=== PATIENT | male | born 1960 | race Caucasian/White ===

== ENCOUNTER 2016-08-22 19:57 | Emergency (ER) | payer OTHER ==
[~2016-08-22] VITALS: Ht 167.6 cm; Wt 77.0 kg
[2016-08-22 20:01] VITALS: Ht 167.6 cm; Wt 77.0 kg
[2016-08-22] MEDS ORDERED: HC1C30 TOP (20:22)
[2016-08-22] MEDS ORDERED: ELIM TOP (20:22)
--- NOTE | 2016-08-22 20:26 | ERD ---
ER Documentation Chief Complaint Date/Time DATE: 08/22/16 TIME: 20:24 Chief Complaint rashes on left arm HPI 55-year-old who presents the emergency room with greater than 2 months of rashes to bilateral arms that appears to be worsening left arm greater than right arm. Slightly worse with sun exposure today. He denies any fevers or chills. He thinks that he may have salt bug when he was scratching his left arm. Patient has not seen a project management consultant and not tried any creams. ROS All systems reviewed and are negative except as per history of present illness. Medications Home Meds Active Scripts Hydrocortisone* Topical (Hydrocortisone* Topical) 1%-28.35 Gm Cream..g., 1 APPLIC TOP Q6 Y for ITCHING, #1 TUB Prov:SUSAN BRISENO MD 08/22/16 Permethrin* (Elimite*) 5% Cr, 1 APPLIC TOP ONCE, #1 TUB Prov:SUSAN BRISENO MD 08/22/16 Allergies Allergies: Coded Allergies: No Known Allergy (Unverified , 08/22/16) FmHx Family History: No diabetes Physical Exam Vitals Vital Signs Date Time Temp Pulse Resp B/P Pulse Ox O2 Delivery O2 Flow Rate FiO2 08/22/16 20:01 98.9 92 20 165/98 99 Physical Exam General: Well developed, well nourished, no acute distress Head: Normocephalic, atraumatic. Eyes: EOM intact ENT: Moist mucous membranes Neck: Full ROM Respiratory: No respiratory distress Cardiovascular: Good capillary refil Abdominal: Nondistended : Deferred MSK: No edema, no unilateral swelling, 5/5 strength Neurologic: Alert and oriented, moving all extremities, normal speech, steady gait Skin: Excoriations noted to the dorsal aspect of bilateral upper extremities left upper extremity worse than the right. 1-2 linear areas, no evidence of lesions within the interdigital spaces. Psych: Normal mood Procedures/MDM Clinical exam is possibly consistent with contact dermatitis versus sun exposure dermatitis versus scabies. The patient will benefit from a permethrin wash and if that does not work topical hydrocortisone cream. The patient will be referred to dermatology clinic at [facility]. No evidence of superimposed infection or cellulitis. We discussed follow up with the patient's primary care doctor within 24 to 48 hours as needed. We also discussed return to the emergency room for worsening symptoms or worsening condition. Outpatient referral: Dermatology Discharge Medications: Permethrin, hydrocortisone Departure Diagnosis: Primary Impression: Scabies Condition: Stable Patient Instructions: Scabies Referrals: [facility] YOU HAVE RECEIVED A MEDICAL SCREENING EXAM AND THE RESULTS INDICATE THAT YOU DO NOT HAVE A CONDITION THAT REQUIRES URGENT TREATMENT IN THE EMERGENCY DEPARTMENT. FURTHER EVALUATION AND TREATMENT OF YOUR CONDITION CAN WAIT UNTIL YOU ARE SEEN IN YOUR DOCTORS OFFICE WITHIN THE NEXT 1-2 DAYS. IT IS YOUR RESPONSIBILITY TO MAKE AN APPOINTMENT FOR FOLOW-UP CARE. IF YOU HAVE A PRIMARY DOCTOR --you should call your primary doctor and schedule an appointment IF YOU DO NOT HAVE A PRIMARY DOCTOR YOU CAN CALL OUR PHYSICIAN REFERRAL HOTLINE AT IF YOU CAN NOT AFFORD TO SEE A PHYSICIAN YOU CAN CHOSE FROM THE FOLLOWING [facility] [address] [facility] [address] [facility] [facility] [address] [facility] [address] [facility] [address] [facility] [address]. [facility] [address] [facility] YOU HAVE RECEIVED A MEDICAL SCREENING EXAM AND THE RESULTS INDICATE THAT YOU DO NOT HAVE A CONDITION THAT REQUIRES URGENT TREATMENT IN THE EMERGENCY DEPARTMENT. FURTHER EVALUATION AND TREATMENT OF YOUR CONDITION CAN WAIT UNTIL YOU ARE SEEN IN YOUR DOCTORS OFFICE WITHIN THE NEXT 1-2 DAYS. IT IS YOUR RESPONSIBILITY TO MAKE AN APPOINTMENT FOR FOLOW-UP CARE. IF YOU HAVE A PRIMARY DOCTOR --you should call your primary doctor and schedule and appointment IF YOU DO NOT HAVE A PRIMARY DOCTOR YOU CAN CALL OUR PHYSICIAN REFERRAL HOTLINE AT . IF YOU CAN NOT AFFORD TO SEE A PHYSICIAN YOU CAN CHOSE FROM THE FOLLOWING [facility] INSTITUTIONS: [facility] [address] [place] [address] [facility] [address] [place] [address] [facility] [address] [place] [address] [facility] dermatology Additional Instructions: Call your primary care doctor TOMORROW for an appointment during the next 1 WEEK.Tell the physician office secretary that you were referred from this facility.See the doctor sooner or return here if your condition worsens before your appointment time. SUSAN BRISENO MD Aug 22, 2016 20:26
== END 2016-08-22 21:04 | disposition home or self-care (01) ==
LOC: FTE 19:57
DX: B86 Scabies (principal)
CPT/HCPCS: 99283

== ENCOUNTER 2016-10-01 17:22 | Emergency (ER) | payer OTHER ==
[~2016-10-01] VITALS: Ht 175.3 cm; Wt 79.0 kg
[~2016-10-01 17:22] MED LIST: ELIM TOP; HC1C30 TOP
[2016-10-01 17:25] VITALS: Ht 175.3 cm; Wt 79.0 kg
[2016-10-01] MEDS ORDERED: HC30CR25 TOP (17:57)
[2016-10-01] MEDS ORDERED: ELIM TOP (17:57)
--- NOTE | 2016-10-01 18:16 | ERD ---
ER Documentation Chief Complaint Date/Time DATE: 10/01/16 TIME: 18:12 Chief Complaint rash x 1 month, was treated for scabies improved but still has rash HPI Patient is a 55-year-old male who presents to the ED for scabies recheck. He states that he was here 1 month ago was diagnosed with scabies. 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 He states that the rashes on his arms and legs have gotten much better however he does state that occasionally they are itchy. He also complains of itching to his head. Denies headache or dizziness. Denies chest pain or cough or shortness of breath. Denies abdominal pain, nausea, vomiting or diarrhea. He states that he did not use the hydrocortisone cream that was given to him since the pharmacy ran out of the medication. No other complaints per ROS All systems reviewed and are negative except as per history of present illness. Medications Home Meds Active Scripts Hydrocortisone* Topical (Hydrocortisone* Topical) 2.5%-28.3 Gm Cream..g., 1 APPLIC TOP BID, #1 TUB Prov:ETELVINA OWUSU PA-C 10/01/16 Permethrin* (Elimite*) 5% Cr, 1 APPLIC TOP ONCE for 2 Days, #2 TUB Prov:ETELVINA OWUSU PA-C 10/01/16 Hydrocortisone* Topical (Hydrocortisone* Topical) 1%-28.35 Gm Cream..g., 1 APPLIC TOP Q6 Y for ITCHING, #1 TUB Prov:SUSAN BRISENO MD 08/22/16 Permethrin* (Elimite*) 5% Cr, 1 APPLIC TOP ONCE, #1 TUB Prov:SUSAN BRISENO MD 08/22/16 Allergies Allergies: Coded Allergies: No Known Allergy (Unverified , 08/22/16) PMhx/Soc Medical and Surgical Hx: pt denies Medical Hx, pt denies Surgical Hx History of Surgery: No Anesthesia Reaction: No Hx Neurological Disorder: No Hx Respiratory Disorders: No Hx Cardiac Disorders: No Hx Psychiatric Problems: No Hx Miscellaneous Medical Probl: No Hx Alcohol Use: No Hx Substance Use: No Hx Tobacco Use: No Smoking Status: Never smoker FmHx Family History: No coronary disease, No diabetes, No other Physical Exam Vitals Vital Signs Date Time Temp Pulse Resp B/P Pulse Ox O2 Delivery O2 Flow Rate FiO2 10/01/16 17:25 98.9 79 18 160/92 97 Physical Exam GENERAL: Well-developed, well-nourished male. Appears in no acute distress. HEAD: Normocephalic, atraumatic. EYES: Pupils are equally reactive bilaterally. EOMs grossly intact. No conjunctival erythema. ENT: Moist mucous membranes. No uvula deviation. No kissing tonsils. No exudates. NECK: Supple. No lymphadenopathy or thyromegaly. No meningismus. negative kernig. negative brudinski. LUNG: Clear to auscultation bilaterally. No rhonchi, wheezing, rales or coarse breath sounds. HEART: Regular rate and rhythm. No murmurs, rubs or gallops. Extremities: Equal pulses bilaterally. No peripheral clubbing, cyanosis or edema. No unilateral leg swelling. Erythematous excoriated lesions on bilateral arms. NEUROLOGIC: Alert and oriented. Moving all four extremities. 5/5 strength in all extremities. Normal speech. Steady gait. SKIN: Normal color. Warm and dry. No rashes or lesions. Capillary refill < 2 seconds Procedures/MDM ER COURSE: I kept the patient and/or family informed of laboratory and diagnostic imaging results throughout the emergency room course. MEDICAL DECISION MAKING: This is a 55-year-old man who presents with rash. Vital signs were reviewed. Patient is afebrile. Patient is not hypoxic. She is nontoxic or ill-appearing. Patient's rash is likely scabies versus dermatitis. Low suspicion for necrotizing fasciitis, SJS, toxic epidermal necrolysis, Kawasaki, erythema multiforme, gangrene, scarlet fever, meningococcemia, sepsis, anaphylaxis, sepsis, deep space infection, or foreign body. DISCHARGE: At this time, patient is stable for discharge and outpatient management with no new complaints during the ER course. Patient was sent home with permethrin and hydrocortisone cream. Patient will be discharged home with instructions to recheck for new or worsening symptoms such as fever, nausea, weakness, LOC and to follow up with primary care in the next 1-2 days. Patient was advised to return to the ER for any new or worsening symptoms. Plan was discussed and patient and/or family understands and agrees. Home instructions were given. Departure Diagnosis: Primary Impression: Rash Condition: Stable Patient Instructions: Scabies, Lice, Head Referrals: DANIEL GONZALES (PCP) Additional Instructions: Call your primary care doctor TOMORROW for an appointment during the next 1-2 days.See the doctor sooner or return here if your condition worsens before your appointment time. ETELVINA OWUSU PA-C Oct 01, 2016 18:15
== END 2016-10-01 18:06 | disposition home or self-care (01) ==
LOC: FTE 17:22
DX: R21 Rash and other nonspecific skin eruption (principal)
CPT/HCPCS: 99283